=== PATIENT | female | born 1950 | race Caucasian/White ===

== ENCOUNTER 2021-04-14 08:28 | Outpatient (CLI) | payer MEDICARE, OTHER, SELFPAY ==
[2021-04-14 08:40] VITALS: BP 143/81; PULSE 79; RESP 18; TEMP 36.7; O2SAT 97; BMI 26.6
[2021-04-14 09:15] VITALS: BP 108/74; PULSE 83; RESP 16; O2SAT 94
[2021-04-14 10:05] VITALS: BP 115/76; PULSE 82; RESP 18; TEMP 36.9; O2SAT 98
== END 2021-04-14 10:12 | disposition home or self-care (01) ==
LOC: OPS 08:34
PROVIDERS: PCP Nurse Practitioner; Visit Provider Nurse Practitioner
DX: U07.1 COVID-19 (principal)
CPT/HCPCS: 96365